=== PATIENT | male | born 1940 | race Caucasian/White ===

== ENCOUNTER 2017-09-01 21:35 | Emergency (ER) | payer OTHER ==
[~2017-09-01] VITALS: Ht 167.6 cm; Wt 56.7 kg
[~2017-09-01 21:35] MED LIST: ADVAIR 2501 DISK W/1 IH; ALEGRA PO; APRESOLINE 10MG10 MG; CARVEDILOL25 MG; CATAFLAM50 MG PO; CATAPRES0.1 MG; COMBIVENT RESPIM4 GM; COMBIVENT RESPIM4 GM IH; COREG CR20 MG; COZAAR100 MG; DOXAZOSIN MESYLA4 MG; FINASTERIDE PO; LASIX20 MG; LIPITOR20 MG; NEURIN SL; OMEPRAZOLE20 MG PO; ORPH100T PO; PERCOCET 5-3251 EACH PO; POTASSIUM 25 M25 ME1 PO; PROTONIX40 MG PO; TAMS0.4C PO; TECTURNA; ZESTRIL40 MG; ZESTRIL5 MG; ZOFRAN ODT4 MG PO; [UNRECOGNIZED DRUG - OTHER] PO
[2017-09-01] MEDS ORDERED: CARVEDILOL25 MG (21:49)
[2017-09-01] MEDS ORDERED: TAMS0.4C (21:50)
[2017-09-01] MEDS ORDERED: LOSARTAN-HCTZ1 EACH (21:50)
[2017-09-01] MEDS ORDERED: MINOXIDIL2.5 MG (21:50)
[2017-09-01] MEDS ORDERED: HYDRALAZINE HCL25 MG (21:50)
[2017-09-01] MEDS ORDERED: SUPER B WITH V1 EACH (21:51)
[2017-09-01] MEDS ORDERED: SYNTHROID50 MCG (21:51)
[2017-09-01] MEDS ORDERED: ATORVASTATIN CA10 MG (21:51)
[2017-09-01] MEDS ORDERED: PRE PROTEIN1 EACH (21:52)
[2017-09-01] MEDS ORDERED: POTASSIUM10 MEQ/100 (21:52)
== END 2017-09-01 22:55 | disposition home or self-care (01) ==
LOC: ER 21:35
DX: M54.32 Sciatica, left side (principal)

== ENCOUNTER 2017-09-11 08:37 | Outpatient (CLI) | payer OTHER ==
[~2017-09-11 08:37] MED LIST changes: +ATORVASTATIN CA10 MG; +HYDRALAZINE HCL25 MG; +LOSARTAN-HCTZ1 EACH; +MINOXIDIL2.5 MG; +POTASSIUM10 MEQ/100; +PRE PROTEIN1 EACH; +SUPER B WITH V1 EACH; +SYNTHROID50 MCG; +TAMS0.4C
== END 2017-09-11 08:46 | disposition home or self-care (01) ==
LOC: MRI 08:37
DX: M51.06 Intervertebral disc disorders with myelopathy, lumbar region (principal); M51.26 Other intervertebral disc displacement, lumbar region
CPT/HCPCS: 72148

== ENCOUNTER 2017-10-04 12:00 | Day surgery (SDC) | payer OTHER ==
[~2017-10-04] VITALS: Ht 165.1 cm; Wt 56.7 kg
[~2017-10-04 12:00] MED LIST changes: +TRAMADOL HCL50 MG PO
== END 2017-10-04 16:10 | disposition home or self-care (01) ==
LOC: CIR.AMB 12:00
DX: M48.061 Spinal stenosis, lumbar region without neurogenic claudication (principal); M51.36 Other intervertebral disc degeneration, lumbar region; M47.817 Spondylosis without myelopathy or radiculopathy, lumbosacral region

== ENCOUNTER 2017-10-06 10:57 | Emergency (ER) | payer OTHER ==
[~2017-10-06] VITALS: Ht 165.1 cm; Wt 59.0 kg
== END 2017-10-06 18:05 | disposition home or self-care (01) ==
LOC: ER 10:57
DX: G89.18 Other acute postprocedural pain (principal); M54.5 Low back pain

== ENCOUNTER 2017-10-10 09:27 | Inpatient (IN) | payer OTHER ==
[~2017-10-10] VITALS: Ht 165.1 cm; Wt 56.7 kg
== END 2017-10-12 17:31 | disposition home or self-care (01) | DRG 726 ==
LOC: ER 09:27 → MEDI 19:35
PROC: B246ZZZ Ultrasonography of Right and Left Heart (ICD-10-PCS; principal; 2017-10-10)
PROC: 4A12X4Z Monitoring of Cardiac Electrical Activity, External Approach (ICD-10-PCS; 2017-10-10)
PROC: B030ZZZ Magnetic Resonance Imaging (MRI) of Brain (ICD-10-PCS; 2017-10-12)
DX: N40.1 Benign prostatic hyperplasia with lower urinary tract symptoms (principal); N13.8 Other obstructive and reflux uropathy; R44.3 Hallucinations, unspecified; I50.30 Unspecified diastolic (congestive) heart failure; R33.8 Other retention of urine; E11.69 Type 2 diabetes mellitus with other specified complication; M48.061 Spinal stenosis, lumbar region without neurogenic claudication; I11.0 Hypertensive heart disease with heart failure
CPT/HCPCS: 70551

== ENCOUNTER 2018-02-28 09:40 | Outpatient (CLI) | payer OTHER | END 2018-02-28 09:41 | disposition home or self-care (01) | LOC: LAB 09:40 | DX: E11.65 Type 2 diabetes mellitus with hyperglycemia (principal); E03.8 Other specified hypothyroidism; D68.8 Other specified coagulation defects; E78.2 Mixed hyperlipidemia ==

== ENCOUNTER 2019-04-15 12:25 | Outpatient (CLI) | payer OTHER | END 2019-04-15 12:30 | disposition home or self-care (01) | LOC: NUCLEAR 12:25 | DX: I82.409 Acute embolism and thrombosis of unspecified deep veins of unspecified lower extremity (principal); I82.419 Acute embolism and thrombosis of unspecified femoral vein ==

== ENCOUNTER 2019-10-02 13:49 | Emergency (ER) | payer OTHER ==
[~2019-10-02] VITALS: Ht 165.1 cm; Wt 65.8 kg
== END 2019-10-02 19:54 | disposition home or self-care (01) ==
LOC: ER 13:49
DX: R33.8 Other retention of urine (principal)

== ENCOUNTER 2020-10-26 09:55 | Outpatient (CLI) | payer OTHER | END 2020-10-26 10:09 | disposition home or self-care (01) | LOC: SONOGRAMA 09:55 → MAMO-SONO 10:15 | PROVIDERS: ATTEND Internal Medicine Nephrology | DX: N42.82 Prostatosis syndrome (principal); N18.2 Chronic kidney disease, stage 2 (mild); I10 Essential (primary) hypertension ==

== ENCOUNTER 2021-01-12 09:21 | Outpatient (CLI) | payer OTHER | END 2021-01-12 09:28 | disposition home or self-care (01) | LOC: RAD 09:21 | PROVIDERS: ATTEND Specialist | DX: J45.998 Other asthma (principal) ==

== ENCOUNTER 2021-11-11 07:35 | Outpatient (CLI) | payer OTHER | END 2021-11-11 07:38 | disposition home or self-care (01) | LOC: NUCLEAR 07:35 | PROVIDERS: ATTEND Internal Medicine Cardiovascular Disease | DX: I25.110 Atherosclerotic heart disease of native coronary artery with unstable angina pectoris (principal) ==

== ENCOUNTER 2023-05-13 16:09 | Emergency (ER) | payer OTHER ==
[~2023-05-13] VITALS: Ht 165.1 cm; Wt 56.7 kg
[2023-05-13] MEDS ORDERED: RIVASTIGMINE1 EAC2 TD (16:32)
[2023-05-13] MEDS ORDERED: RAPAFLO8 MG PO (16:32)
== END 2023-05-13 22:38 | disposition home or self-care (01) ==
LOC: ER 16:09
PROVIDERS: General Practice
DX: U07.1 COVID-19 (principal); R05.9 Cough, unspecified; Z88.0 Allergy status to penicillin

== ENCOUNTER 2024-06-23 12:41 | Emergency (ER) | payer OTHER ==
[~2024-06-23] VITALS: Ht 165.1 cm; Wt 56.7 kg
[~2024-06-23 12:41] MED LIST changes: +FAMOTIDINE40 MG PO; +IPRATROPIU0.2 MG/1 M IH; +LISINOPRIL30 MG PO; +RAPAFLO8 MG PO; +RIVASTIGMINE1 EAC2 TD
[2024-06-23] MEDS ORDERED: LEVOTHYROXINE50 MCG PO (13:12)
[2024-06-23] MEDS ORDERED: HYDRALAZINE HCL25 MG PO (13:13)
[2024-06-23] MEDS ORDERED: ATORVASTATIN CA40 MG PO (13:13)
[2024-06-23] MEDS ORDERED: LONITEN2.5 MG PO (13:13)
[2024-06-23] MEDS ORDERED: ZESTRIL20 MG (13:13)
[2024-06-23] MEDS ORDERED: CARVEDILOL ER40 MG (13:13)
[2024-06-23] MEDS ORDERED: [UNRECOGNIZED DRUG - OTHER] (13:15)
[2024-06-23] MEDS ORDERED: MIRTAZAPINE30 M1 PO (13:15)
[2024-06-23] MEDS ORDERED: MEMANTINE HCL E21 MG PO (13:16)
[2024-06-23 14:14] LABS: HEMATOCRIT 38.7 % (39.0-48.0); HEMOGLOBIN 13.4 g/dL (13-16.00); MEAN CORPUSCULAR HEMOGLOBIN 31.9 pg (27.00-32.0); MEAN CORPUSCULAR HGB CONC 34.7 g/dl (32.0-36.0); PLATELET COUNT 260 K/uL (150-450); RED BLOOD COUNT 4.21 M/uL (4.00-6.00); RED CELL DISTRIBUTION WIDTH 14.4 % (11.5-14.5)
[2024-06-23 14:42] LABS: ALBUMIN 3.8 gm/dL (3.4-5.0); BILIRUBIN TOTAL 1.51 mg/dL (0.3-1.2); CALCIUM 8.9 mg/dL (8.5-10.1); CREATININE SERUM 0.9 mg/dL (0.70-1.30); GFR 80.59; GLOBULINA 3.3 G/DL (2.4-3.5); POTASSIUM 3.7 mEq/L (3.5-5.1); TOTAL PROTEIN 7.1 gm/dL (6.4-8.2)
[2024-06-23 14:42] LABS: URINE APPEARANCE Clear; URINE BILIRRUBIN Negative (NEGATIVE); URINE BLOOD Negative; URINE COLOR Yellow; URINE GLUCOSE Negative (NEGATIVE); URINE KETONE Negative (NEGATIVE); URINE LEUKOCYTE Negative; URINE NITRATE Negative; URINE PROTEIN Trace (NEGATIVE); URINE UROBILINOGEN 0.2 E.U./dl
[2024-06-23 14:43] LABS: URINE BACTERIA 6.2 uL (0.0-1933); URINE EPITHELIAL CELLS 4.1 uL (0.0-38.8); URINE RBC 24.8 uL (0.0-20.8); URINE WBC 2.6 uL (0.0-23.2)
== END 2024-06-23 17:18 | disposition home or self-care (01) ==
LOC: ER 12:43
PROVIDERS: Emergency Medicine
DX: K52.89 Other specified noninfective gastroenteritis and colitis (principal); J44.89 Other specified chronic obstructive pulmonary disease; F03.90 Unspecified dementia, unspecified severity, without behavioral disturbance, psychotic disturbance, mood disturbance, and anxiety; E78.00 Pure hypercholesterolemia, unspecified; I10 Essential (primary) hypertension; D64.89 Other specified anemias; Z20.822 Contact with and (suspected) exposure to COVID-19